=== PATIENT | male | born 1985 | race Caucasian/White ===

== ENCOUNTER → 2020-05-24 14:59 | Outpatient (CLI) | payer OTHER, SELFPAY ==
--- NOTE | 2020-05-24 15:03 | DI.US.S_ITS ---
PROCEDURE: US EXTREMELY NONVASC UPPER RT INDICATIONS: eval 2 masses: 1 mass distal to elbow, 1 olecranon bursitis TECHNIQUE: Real-time scanning was performed of the area of current clinical concern of a elbow region lump and immediately below., with image documentation. COMPARISON: None. FINDINGS: At the lump at the right elbow in the area of current clinical concern as indicated by the patient there is minimally complex excess fluid measuring up to 0.6 x 3.6 x 3.2 cm, consistent with olecranon bursitis. Distal to this area anterior to the ulna there is an additional palpable finding of an isoechoic ill-defined a vascular mass measuring up 0.4 x 2.0 x 2.1 cm. This is considered most likely a lipoma. IMPRESSION: Electron on bursitis with excess bursal fluid in the area at the dorsal aspect of the right elbow. More inferiorly near this area is a 2nd palpable abnormality that likely is an ovoid lipoma as discussed. Continued clinical follow-up of the presumed lipoma is recommended and if this structure increases in size follow-up by contrast-enhanced MR scanning would be recommended. Dictated by: Mo Sebastian M.D. on 05/24/2020 at 16:24 Approved by: Mo Sebastian M.D. on 05/24/2020 at 16:28
== END ==
PROVIDERS: Family Provider Family Medicine; PCP Registered Nurse Diabetes Educator; Referring Provider Registered Nurse Diabetes Educator; Visit Provider Registered Nurse Diabetes Educator
DX: M70.21 Olecranon bursitis, right elbow (principal); R22.31 Localized swelling, mass and lump, right upper limb; M25.521 Pain in right elbow
CPT/HCPCS: 76882

== ENCOUNTER → 2020-12-26 13:06 | Outpatient (CLI) | payer OTHER, SELFPAY ==
[2020-12-26 14:58] LABS: Alanine Aminotransferase 26 IU/L (<50); Albumin 4.1 g/dL (3.5-5.0); Albumin Globulin Ratio 1.7 (1.0-2.8); Alkaline Phosphatase 58 U/L (38-126); Aspartate Aminotransferase 29 IU/L (17-59); Bilirubin Total 0.5 mg/dL (0.2-1.3); Bilirubin Unconjugated 0.4 mg/dL (0.0-1.1); Globulin 2.4 g/dL (1.7-4.1); HEMOLYSIS 21 (0-50); Total Protein 6.5 g/dL (6.3-8.2)
== END ==
PROVIDERS: Family Provider Family Medicine; PCP Registered Nurse Diabetes Educator; Referring Provider Registered Nurse Diabetes Educator; Visit Provider Registered Nurse Diabetes Educator
DX: B35.1 Tinea unguium (principal)
CPT/HCPCS: 36415; 80076

== ENCOUNTER → 2021-02-18 09:50 | Outpatient (CLI) | payer OTHER, SELFPAY ==
[2021-02-18 13:44] LABS: Alanine Aminotransferase 28 IU/L (<50); Albumin Globulin Ratio 1.7 (1.0-2.8); Alkaline Phosphatase 48 U/L (38-126); Aspartate Aminotransferase 23 IU/L (17-59); Bilirubin Total 0.6 mg/dL (0.2-1.3); Bilirubin Unconjugated 0.5 mg/dL (0.0-1.1); Globulin 2.3 g/dL (1.7-4.1); HEMOLYSIS < 15 (0-50); Total Protein 6.3 g/dL (6.3-8.2)
== END ==
PROVIDERS: Family Provider Family Medicine; PCP Registered Nurse Diabetes Educator; Referring Provider Registered Nurse Diabetes Educator; Visit Provider Registered Nurse Diabetes Educator
DX: B35.1 Tinea unguium (principal)
CPT/HCPCS: 36415; 80076

== ENCOUNTER → 2021-04-19 10:18 | Outpatient (CLI) | payer OTHER, SELFPAY ==
[2021-04-19 11:10] LABS: Alanine Aminotransferase 43 IU/L (<50); Albumin 4.5 g/dL (3.5-5.0); Albumin Globulin Ratio 1.8 (1.0-2.8); Alkaline Phosphatase 55 U/L (38-126); Aspartate Aminotransferase 27 IU/L (17-59); Bilirubin Total 0.5 mg/dL (0.2-1.3); Bilirubin Unconjugated 0.5 mg/dL (0.0-1.1); Globulin 2.5 g/dL (1.7-4.1); HEMOLYSIS < 15 (0-50)
== END ==
PROVIDERS: Family Provider Family Medicine; PCP Registered Nurse Diabetes Educator; Referring Provider Registered Nurse Diabetes Educator; Visit Provider Registered Nurse Diabetes Educator
DX: B35.1 Tinea unguium (principal)
CPT/HCPCS: 36415; 80076

== ENCOUNTER → 2021-06-08 15:41 | Outpatient (CLI) | payer OTHER, SELFPAY ==
[2021-06-08 17:19] LABS: Alanine Aminotransferase 35 IU/L (<50); Albumin Globulin Ratio 1.8 (1.0-2.8); Alkaline Phosphatase 51 U/L (38-126); Aspartate Aminotransferase 24 IU/L (17-59); Bilirubin Total 0.4 mg/dL (0.2-1.3); Bilirubin Unconjugated 0.3 mg/dL (0.0-1.1); Globulin 2.2 g/dL (1.7-4.1); HEMOLYSIS < 15 (0-50); Total Protein 6.2 g/dL (6.3-8.2)
== END ==
PROVIDERS: Family Provider Family Medicine; PCP Registered Nurse Diabetes Educator; Referring Provider Registered Nurse Diabetes Educator; Visit Provider Registered Nurse Diabetes Educator
DX: B35.1 Tinea unguium (principal)
CPT/HCPCS: 36415; 80076

== ENCOUNTER → 2023-01-18 18:48 | Outpatient (CLI) | payer OTHER, SELFPAY ==
[2023-01-18 19:56] LABS: Influenza A - CEPHEID Flu A NEGATIVE (NEGATIVE); Influenza B - CEPHEID Flu B NEGATIVE (NEGATIVE); Respiratory Syncytial Virus Negative (Negative)
[2023-01-18 19:59] LABS: COVID-19 CEPHEID 4-PLEX PCR Negative (Negative)
== END ==
PROVIDERS: Family Provider Family Medicine; PCP Registered Nurse Diabetes Educator; Visit Provider Physician Assistant
DX: R05.1 Acute cough (principal); Z20.822 Contact with and (suspected) exposure to COVID-19
CPT/HCPCS: 0241U

== ENCOUNTER → 2023-01-21 12:37 | Outpatient (CLI) | payer OTHER, SELFPAY | PROVIDERS: Family Provider Family Medicine; PCP Registered Nurse Diabetes Educator; Referring Provider Physician Assistant; Visit Provider Physician Assistant | DX: R19.7 Diarrhea, unspecified (principal) | CPT/HCPCS: 87045; 87899 ==